=== PATIENT | female | born 1950 | race Caucasian/White ===

== ENCOUNTER 2019-11-01 08:55 | Outpatient (CLI) | payer MEDICARE, OTHER, SELFPAY ==
--- NOTE | 2019-11-01 09:09 | XR_ITS ---
WS: [id number] THORACIC SPINE TECHNIQUE: AP and lateral views are performed. HISTORY: BACK PAIN COMPARISON: 05/08/2010 Moderate increase in thoracic kyphosis. Moderate degenerative disc disease throughout the thoracic sp ine with large osteophytes in the midthoracic vertebral region extending anteriorly. Disc space narro wing and desiccation most significant at T4-T7 and T8-9. No fractures. Marginal osteophytes are great est to the RIGHT. Significant progression of spondylitic changes since 2010. Prior cholecystectomy. Atherosclerosis aorta. XR/XR thoracic spine 3V* [id number] IMPRESSION: 1. Moderate spondylitic changes throughout the thoracic spine with moderate pr ogression since 2010. 2. No fracture.
== END 2019-11-01 08:56 | disposition home or self-care (01) ==
LOC: RADWPI 09:00
PROVIDERS: Family Provider Family Medicine; PCP Family Medicine; Visit Provider Family Medicine
DX: M54.9 Dorsalgia, unspecified (principal)
CPT/HCPCS: 72072

== ENCOUNTER → 2021-09-09 11:15 | Outpatient (BNVA) | payer MEDICARE, OTHER, SELFPAY | PROVIDERS: Family Provider Family Medicine; PCP Family Medicine; Visit Provider Family Medicine | DX: M79.10 Myalgia, unspecified site (principal); M25.50 Pain in unspecified joint | CPT/HCPCS: 80053; 85025; 85651; 86140; 86160; 86162; 86235; 86255; 86376; 86431 ==

== ENCOUNTER → 2021-12-08 09:18 | Outpatient (BNVA) | payer MEDICARE, OTHER, SELFPAY | PROVIDERS: Family Provider Family Medicine; PCP Family Medicine; Referring Provider Family Medicine; Visit Provider Internal Medicine Rheumatology | DX: M05.79 Rheumatoid arthritis with rheumatoid factor of multiple sites without organ or systems involvement (principal); Z79.899 Other long term (current) drug therapy; E06.3 Autoimmune thyroiditis; Z71.85 Encounter for immunization safety counseling; Z11.59 Encounter for screening for other viral diseases; Z11.1 Encounter for screening for respiratory tuberculosis | CPT/HCPCS: 99204 ==

== ENCOUNTER → 2022-01-18 08:21 | Outpatient (BNVA) | payer MEDICARE, OTHER, SELFPAY | PROVIDERS: Family Provider Family Medicine; PCP Family Medicine; Visit Provider Family Medicine | DX: E06.3 Autoimmune thyroiditis (principal); Z11.59 Encounter for screening for other viral diseases; R76.8 Other specified abnormal immunological findings in serum; M06.9 Rheumatoid arthritis, unspecified; Z79.899 Other long term (current) drug therapy | CPT/HCPCS: 80076; 82565; 84439; 84443; 85025; 86140; 86160; 86704; 86803; 87340 ==

== ENCOUNTER → 2022-01-21 08:35 | Outpatient (BNVA) | payer MEDICARE, OTHER, SELFPAY | PROVIDERS: Family Provider Family Medicine; PCP Family Medicine; Visit Provider Family Medicine | DX: Z11.59 Encounter for screening for other viral diseases (principal); M06.9 Rheumatoid arthritis, unspecified; Z79.899 Other long term (current) drug therapy | CPT/HCPCS: 86480 ==

== ENCOUNTER → 2022-02-23 09:21 | Outpatient (BNVA) | payer MEDICARE, OTHER, SELFPAY | PROVIDERS: Family Provider Family Medicine; PCP Family Medicine; Visit Provider Family Medicine | DX: Z79.899 Other long term (current) drug therapy (principal) | CPT/HCPCS: 80076 ==

== ENCOUNTER → 2022-03-09 09:10 | Outpatient (BNVA) | payer MEDICARE, OTHER, SELFPAY | PROVIDERS: Family Provider Family Medicine; PCP Family Medicine; Visit Provider Internal Medicine Rheumatology | DX: M05.79 Rheumatoid arthritis with rheumatoid factor of multiple sites without organ or systems involvement (principal); Z79.899 Other long term (current) drug therapy; Z71.85 Encounter for immunization safety counseling; E06.3 Autoimmune thyroiditis; R76.8 Other specified abnormal immunological findings in serum; K21.9 Gastro-esophageal reflux disease without esophagitis | CPT/HCPCS: 80076; 82565; 85025; 86140; 99214 ==

== ENCOUNTER → 2022-05-26 08:55 | Outpatient (BNVA) | payer MEDICARE, OTHER, SELFPAY | PROVIDERS: Family Provider Family Medicine; PCP Family Medicine; Visit Provider Family Medicine | DX: Z00.00 Encounter for general adult medical examination without abnormal findings (principal); E07.9 Disorder of thyroid, unspecified; I10 Essential (primary) hypertension; J44.9 Chronic obstructive pulmonary disease, unspecified; E06.3 Autoimmune thyroiditis | CPT/HCPCS: 80053; 80061; 84443; 85025 ==

== ENCOUNTER → 2022-05-27 09:46 | Outpatient (BNVA) | payer MEDICARE, OTHER, SELFPAY | PROVIDERS: Family Provider Family Medicine; PCP Family Medicine; Referring Provider Clinical Nurse Specialist Adult Health; Visit Provider Dermatology | DX: L30.8 Other specified dermatitis (principal) | CPT/HCPCS: 88305; 88312 ==

== ENCOUNTER 2022-06-15 08:01 | Outpatient (CLI) | payer MEDICARE, OTHER, SELFPAY ==
--- NOTE | 2022-06-15 08:30 | MM_ITS ---
WS: [id number] BILATERAL SCREENING DIGITAL TOMOSYNTHESIS MAMMOGRAM WITH CAD HISTORY: breast cancer screening COMPARISON: 08/22/2017, 11/03/2006 Bilateral CC and MLO views with tomosynthesis and synthetic mammography submitted. Computer aided det ection analyzed. Breast composition: The breasts are heterogeneously dense, which may obscure small masses. No suspici ous masses, microcalcifications or architectural distortion. Stable cluster of calcifications in the upper outer LEFT breast at a middle depth. There are additional scattered benign calcifications withi n each breast. MM/[place] [id number] IMPRESSION: BI-RADS: 2-Benign FOLLOW UP: 1 Year Follow-up
== END 2022-06-15 08:02 | disposition home or self-care (01) ==
PROVIDERS: PCP Family Medicine; Visit Provider Family Medicine
DX: Z12.31 Encounter for screening mammogram for malignant neoplasm of breast (principal)
CPT/HCPCS: 77063; 77067

== ENCOUNTER → 2022-07-07 13:50 | Outpatient (BNVA) | payer MEDICARE, OTHER, SELFPAY | PROVIDERS: PCP Family Medicine; Visit Provider Internal Medicine Rheumatology | DX: M05.79 Rheumatoid arthritis with rheumatoid factor of multiple sites without organ or systems involvement (principal); Z79.899 Other long term (current) drug therapy; Z71.85 Encounter for immunization safety counseling; E06.3 Autoimmune thyroiditis | CPT/HCPCS: 99214 ==

== ENCOUNTER → 2022-10-28 14:13 | Outpatient (BNVA) | payer MEDICARE, OTHER, SELFPAY | PROVIDERS: PCP Family Medicine; Visit Provider Internal Medicine Rheumatology | DX: Z79.899 Other long term (current) drug therapy (principal); M05.79 Rheumatoid arthritis with rheumatoid factor of multiple sites without organ or systems involvement; Z71.85 Encounter for immunization safety counseling; E06.3 Autoimmune thyroiditis | CPT/HCPCS: 36415; 80076; 82565; 85025; 86140; 99214 ==

== ENCOUNTER → 2022-12-01 10:44 | Outpatient (BNVA) | payer MEDICARE, OTHER, SELFPAY | PROVIDERS: PCP Family Medicine; Visit Provider Clinical Nurse Specialist Adult Health | DX: L98.9 Disorder of the skin and subcutaneous tissue, unspecified (principal) | CPT/HCPCS: 88304 ==

== ENCOUNTER → 2023-01-11 11:14 | Outpatient (BNVA) | payer MEDICARE, OTHER, SELFPAY | PROVIDERS: PCP Family Medicine; Visit Provider Nurse Practitioner Family | DX: L20.89 Other atopic dermatitis (principal); L82.0 Inflamed seborrheic keratosis; L82.1 Other seborrheic keratosis; D22.5 Melanocytic nevi of trunk | CPT/HCPCS: 17110; 99214 ==

== ENCOUNTER → 2023-03-17 11:11 | Outpatient (BNVA) | payer MEDICARE, OTHER, SELFPAY | PROVIDERS: PCP Family Medicine; Visit Provider Family Medicine | DX: Z79.899 Other long term (current) drug therapy (principal); Z00.00 Encounter for general adult medical examination without abnormal findings; M05.79 Rheumatoid arthritis with rheumatoid factor of multiple sites without organ or systems involvement; I10 Essential (primary) hypertension; J44.9 Chronic obstructive pulmonary disease, unspecified; E06.3 Autoimmune thyroiditis | CPT/HCPCS: 80076; 82565; 85025; 86140 ==

== ENCOUNTER 2023-04-11 09:08 | Outpatient (CLI) | payer MEDICARE, OTHER, SELFPAY ==
--- NOTE | 2023-04-11 09:16 | XRR_ITS ---
PROCEDURE INFORMATION: Exam: XR Chest Exam date and time: 04/11/2023 9:21 AM Age: 72 years old Clinical indication: Condition or disease; Lung condition and disease; Copd; Complications not specified; Additional info: J44.9 - chronic obstructive pulmonary disease, unspecified TECHNIQUE: Imaging protocol: Radiologic exam of the chest. Views: 2 views. COMPARISON: CR XR chest 2V* [id number] 12/21/2016 10:27 AM FINDINGS: Lungs: Mild COPD. Lung base atelectasis or scarring again seen. No new consolidation or significant change has occurred from 12/21/2016. Pleural spaces: Unchanged minimal bilateral CP angle blunting by fluid or scarring. No pneumothorax. Heart/Mediastinum: The heart remains quite large. Diffuse vascular calcification Bones/joints: Unremarkable. Organs: Absent gallbladder. XR/XR chest 2V* [id number] IMPRESSION: 1. No acute findings. 2. Chronic findings are similar to 12/21/2016.
== END 2023-04-11 09:09 | disposition home or self-care (01) ==
LOC: RAD 09:09
PROVIDERS: PCP Family Medicine; Visit Provider Family Medicine
DX: J44.9 Chronic obstructive pulmonary disease, unspecified (principal)
CPT/HCPCS: 71046

== ENCOUNTER 2023-05-06 09:50 | Outpatient (CLI) | payer MEDICARE, OTHER, SELFPAY ==
--- NOTE | 2023-05-06 10:15 | USCV_ITS ---
Grace Reyes Age: 72 Gender: F : 1950 Exam Date: 05/06/2023 10:28 Ordering Phys: Brian Yo DO Technologist: ANANT Exam Location: [facility] [place] Indication: COPD, CARDIOMEGALY BP: 126 / 76 HR: 80 Rhythm: Sinus Technical Quality: Adequate MEASUREMENTS (Male / Female) Normal Values 2D ECHO LVOT Diameter 2.0 cm LV Ejection Fraction MOD 2C 56.8 % LV Ejection Fraction 2C AL 59.9 % LA Diameter 4.2 cm LA Width 4.3 cm LA Height 5.8 cm RA Width 3.8 cm RA Height 5.3 cm Aorta at Sinotubular Diameter 2.5 cm IVC Diameter 1.2 cm M-MODE Aortic Annulus Diameter 2.4 cm LA Ao Ratio MM 1.5 MV E Point Septal Separation 0.5 cm DOPPLER AV Peak Velocity 126.0 cm/s LVOT Peak Velocity 98.0 cm/s AV Area Cont Eq vti 2.7 cm squared AV Area Cont Eq pk 2.5 cm squared MV Peak Velocity 87.0 cm/s MV Area PHT 3.0 cm squared Mitral E to A Ratio 1.3 MV E' Velocity 41.0 cm/s Mitral E to MV E' Ratio 11.8 Mitral E to LV E' Lateral Ratio 12.6 Mitral E to LV E' Septal Ratio 11.3 TR Peak Velocity 157.3 cm/s TR Peak Gradient 9.9 mmHg TR Mean Velocity 140.4 cm/s TR Mean Gradient 8.1 mmHg TR Velocity Time Integral 43.3 cm TV Peak E Velocity 34.0 cm/s Right Atrial Pressure 3.0 mmHg Pulmonary Artery Systolic Pressu 12.9 mmHg PV Peak Velocity 95.0 cm/s RV Acceleration Time 0.1 s RV Ejection Time 0.3 s RV AcT/ET 0.2 FINDINGS Left Ventricle Left ventricle is normal in size. LV systolic function is normal with EF of 55 to 60%. No regional wall motion abnormalities are seen. Right Ventricle Normal in size and function Right Atrium Normal in size Left Atrium Dilated. Mitral Valve Structurally normal mitral valve. Mild mitral regurgitation. Aortic Valve Structurally normal aortic valve. No significant stenosis or regurgitation seen. Tricuspid Valve Mild tricuspid regurgitation. Pulmonic Valve Not well-visualized. Pericardium Normal Aorta Normal in size. IVC Appears to be normal. CONCLUSIONS LV systolic function is normal with EF 55 to 60%. Left atrial dilation Mild mitral regurgitation Mild tricuspid regurgitation No comparison studies are available. Brian Hilton MD (Electronically Signed) Final Date: 15 May 2023 20:07 S
== END 2023-05-06 09:51 | disposition home or self-care (01) ==
LOC: RAD 09:50
PROVIDERS: PCP Family Medicine; Visit Provider Family Medicine
DX: I51.7 Cardiomegaly (principal); J41.0 Simple chronic bronchitis
CPT/HCPCS: 93306

== ENCOUNTER → 2023-05-24 11:07 | Outpatient (BNVA) | payer MEDICARE, OTHER, SELFPAY | PROVIDERS: PCP Family Medicine; Visit Provider Internal Medicine Rheumatology | DX: Z79.899 Other long term (current) drug therapy (principal); M05.79 Rheumatoid arthritis with rheumatoid factor of multiple sites without organ or systems involvement; Z71.85 Encounter for immunization safety counseling; E06.3 Autoimmune thyroiditis | CPT/HCPCS: 99214 ==

== ENCOUNTER → 2023-10-18 10:02 | Outpatient (BNVA) | payer MEDICARE, OTHER, SELFPAY | PROVIDERS: PCP Family Medicine; Visit Provider Internal Medicine Rheumatology | DX: M05.79 Rheumatoid arthritis with rheumatoid factor of multiple sites without organ or systems involvement (principal); E06.3 Autoimmune thyroiditis; Z79.899 Other long term (current) drug therapy; Z71.85 Encounter for immunization safety counseling; Z11.1 Encounter for screening for respiratory tuberculosis; Z11.59 Encounter for screening for other viral diseases | CPT/HCPCS: 80053; 80061; 84443; 99214 ==

== ENCOUNTER → 2023-11-01 14:31 | Outpatient (BNVA) | payer MEDICARE, OTHER, SELFPAY | PROVIDERS: PCP Family Medicine; Visit Provider Internal Medicine Rheumatology | DX: M71.9 Bursopathy, unspecified (principal); M05.79 Rheumatoid arthritis with rheumatoid factor of multiple sites without organ or systems involvement; Z71.89 Other specified counseling | CPT/HCPCS: 20610; J1010 ==

== ENCOUNTER 2023-11-02 13:30 | Outpatient (CLI) | payer MEDICARE, OTHER, SELFPAY ==
--- NOTE | 2023-11-02 13:30 | MM_ITS ---
WS: [id number] BILATERAL 3D TOMOSYNTHESIS DIGITAL SCREENING MAMMOGRAPHY WITH CAD CLINICAL INFORMATION: screening HISTORY: Screening mammogram. No current complaints. COMPARISON: 2022 TECHNIQUE: Bilateral CC and MLO views. FINDINGS: The breasts are composed of heterogeneous fibroglandular density tissue, which can limit the detectio n of small underlying mass lesions Bilateral scattered benign incidental punctate calcifications. Vas cular calcification. Stable clustered coarse calcifications LEFT breast. Partially obscured ovoid nodule posterior depth LEFT breast best seen on the lateral view. This local izes to the inner LEFT breast on the tomosynthesis. Recommend LEFT breast diagnostic mammography and ultrasound in further evaluation. RIGHT breast is unremarkable and unchanged. MM/[place] [id number] IMPRESSION: BI-RADS: 0-Incomplete: Need additional imaging evaluation FOLLOW UP: Need Additional Imaging Recommend LEFT breast diagnostic mammography and ultrasound in further evaluati on.
--- NOTE | 2023-11-02 14:00 | XR_ITS ---
WS: [id number] SCREENING DEXA SCAN Smartsheet CLINICAL INFORMATION: screening for osteoporosis COMPARISON: 2017 FINDINGS: The L1-L4 bone mineral density measures 1.055 g/cm2. This corresponds to a T score score of -1.0 and Z score of -0.2. Left femoral neck bone mineral density measures 0.912 g/cm2. This corresponds to a T score of -0.8 an d Z score of 0.2. Right femoral neck bone mineral density measures 0.919 g/cm2. This corresponds to a T score -0.7of an d Z score of 0.2. Mean femoral neck bone mineral density measures 0.915 g/cm2. This corresponds to a T score of -0.7 an d Z score of 0.2. XR/XR DEXA axial skeleton* [id number] IMPRESSION: Osteopenia lumbar spine. Normal bone mineralization femoral necks. Patient's FRAX calculated 10 year probability for major osteoporotic fracture i s 14.2% and osteoporotic hip fracture is 3.0%. Bone mineral density lumbar spine increased 4.1% Bone mineral density femoral necks decreased -4.2%
== END 2023-11-02 13:31 | disposition home or self-care (01) ==
PROVIDERS: PCP Family Medicine; Visit Provider Clinical Nurse Specialist Adult Health
DX: Z12.31 Encounter for screening mammogram for malignant neoplasm of breast (principal); Z13.820 Encounter for screening for osteoporosis; R92.333 Mammographic heterogeneous density, bilateral breasts; R92.1 Mammographic calcification found on diagnostic imaging of breast; N63.20 Unspecified lump in the left breast, unspecified quadrant; M85.88 Other specified disorders of bone density and structure, other site
CPT/HCPCS: 77063; 77067; 77080

== ENCOUNTER → 2023-11-03 11:52 | Outpatient (BNVA) | payer MEDICARE, OTHER, SELFPAY | PROVIDERS: PCP Family Medicine; Visit Provider Family Medicine | DX: R79.89 Other specified abnormal findings of blood chemistry (principal); I10 Essential (primary) hypertension | CPT/HCPCS: 82306 ==

== ENCOUNTER 2024-01-02 11:10 | Outpatient (CLI) | payer MEDICARE, OTHER, SELFPAY ==
--- NOTE | 2024-01-02 11:14 | US_ITS ---
WS: [id number] LEFT 3D TOMOSYNTHESIS DIGITAL MAMMOGRAPHY WITH CAD CLINICAL INFORMATION: abnormal screening mammogram of left breast HISTORY: Additional views COMPARISON: 11/02/2023 TECHNIQUE: 3 views of the left breast were obtained. FINDINGS: The left breast is composed of heterogeneous fibroglandular density tissue, which can limit the detec tion of small underlying mass lesions. Vascular calcifications. Stable cluster of coarse calcificatio ns. Stable partially obscured ovoid nodule posterior depth LEFT breast is persistent. Ultrasound is pendi ng. ULTRASOUND BREAST LEFT TECHNIQUE: Ultrasound left breast focused area of concern. CLINICAL INFORMATION: abnormal screening mammogram of left breast FINDINGS: Ultrasound LEFT breast at the 10 o'clock position 6 cm from the nipple. Incidental simple cyst in thi s location measuring 10 mm. Additional adjacent satellite simple cyst at the 8 o'clock position measu ring 3 mm. Findings are benign. US/US breast LT limited* [id number] IMPRESSION: DENSITY: The breasts are heterogeneously dense, which may obscure small masses. BI-RADS: 2 - Benign FOLLOW UP: 1 Year Follow-up Recommend return to annual screening mammography.
--- NOTE | 2024-01-02 11:30 | MM_ITS ---
WS: [id number] LEFT 3D TOMOSYNTHESIS DIGITAL MAMMOGRAPHY WITH CAD CLINICAL INFORMATION: abnormal screening mammogram of left breast HISTORY: Additional views COMPARISON: 11/02/2023 TECHNIQUE: 3 views of the left breast were obtained. FINDINGS: The left breast is composed of heterogeneous fibroglandular density tissue, which can limit the detec tion of small underlying mass lesions. Vascular calcifications. Stable cluster of coarse calcificatio ns. Stable partially obscured ovoid nodule posterior depth LEFT breast is persistent. Ultrasound is pendi ng. ULTRASOUND BREAST LEFT TECHNIQUE: Ultrasound left breast focused area of concern. CLINICAL INFORMATION: abnormal screening mammogram of left breast FINDINGS: Ultrasound LEFT breast at the 10 o'clock position 6 cm from the nipple. Incidental simple cyst in thi s location measuring 10 mm. Additional adjacent satellite simple cyst at the 8 o'clock position measu ring 3 mm. Findings are benign. MM/MM diag LT tomosynthesis [id number] IMPRESSION: DENSITY: The breasts are heterogeneously dense, which may obscure small masses. BI-RADS: 2 - Benign FOLLOW UP: 1 Year Follow-up Recommend return to annual screening mammography.
== END 2024-01-02 11:11 | disposition home or self-care (01) ==
LOC: RAD 11:11
PROVIDERS: PCP Family Medicine; Visit Provider Clinical Nurse Specialist Adult Health
DX: N60.12 Diffuse cystic mastopathy of left breast (principal); R92.333 Mammographic heterogeneous density, bilateral breasts; R92.1 Mammographic calcification found on diagnostic imaging of breast
CPT/HCPCS: 76642; 77061; G0279

== ENCOUNTER → 2024-02-28 09:31 | Outpatient (BNVA) | payer MEDICARE, OTHER, SELFPAY | PROVIDERS: PCP Family Medicine; Visit Provider Internal Medicine Rheumatology | DX: Z79.899 Other long term (current) drug therapy (principal); M05.79 Rheumatoid arthritis with rheumatoid factor of multiple sites without organ or systems involvement; Z71.85 Encounter for immunization safety counseling; E06.3 Autoimmune thyroiditis | CPT/HCPCS: 36415; 80076; 82565; 85025; 85651; 86140; 99214 ==

== ENCOUNTER → 2024-05-07 15:40 | Outpatient (BNVA) | payer MEDICARE, OTHER, SELFPAY | PROVIDERS: PCP Family Medicine; Visit Provider Family Medicine | DX: R05.9 Cough, unspecified (principal) | CPT/HCPCS: 71046; 87400; 87426 ==

== ENCOUNTER → 2024-06-26 08:56 | Outpatient (BNVA) | payer MEDICARE, OTHER, SELFPAY | PROVIDERS: PCP Family Medicine; Visit Provider Internal Medicine Rheumatology | DX: M05.79 Rheumatoid arthritis with rheumatoid factor of multiple sites without organ or systems involvement (principal); Z79.899 Other long term (current) drug therapy; Z71.85 Encounter for immunization safety counseling; E06.3 Autoimmune thyroiditis | CPT/HCPCS: 36415; 80076; 82565; 85025; 85651; 86140; 99214 ==

== ENCOUNTER → 2024-11-19 14:01 | Outpatient (BNVA) | payer MEDICARE, OTHER, SELFPAY | PROVIDERS: PCP Family Medicine; Visit Provider Internal Medicine Rheumatology | DX: M05.79 Rheumatoid arthritis with rheumatoid factor of multiple sites without organ or systems involvement (principal); Z79.899 Other long term (current) drug therapy; Z71.85 Encounter for immunization safety counseling; E06.3 Autoimmune thyroiditis | CPT/HCPCS: 36415; 80076; 82306; 82565; 85025; 85651; 86140; 86480; 99214 ==

== ENCOUNTER 2025-02-19 10:06 | Outpatient (CLI) | payer MEDICARE, OTHER, SELFPAY ==
--- NOTE | 2025-02-19 10:13 | XRR_ITS ---
PROCEDURE INFORMATION: Exam: XR Right Hip Exam date and time: 02/19/2025 10:19 AM Age: 74 years old Clinical indication: Hip pain; X1 week pain in right hip, stabbing pain; Additional info: M16.10 - unilateral primary osteoarthritis, unspecified hip TECHNIQUE: Imaging protocol: Radiologic exam of the right hip. Views: 1 view hip with pelvis when performed. COMPARISON: No relevant prior studies available. FINDINGS: Bones/joints: Unremarkable. No acute fracture. Soft tissues: Unremarkable. XR/XR hip RT 2-3V wo/w pel* [id number] IMPRESSION: No acute findings.
== END 2025-02-19 10:07 | disposition home or self-care (01) ==
LOC: RAD 10:09
PROVIDERS: PCP Family Medicine; Visit Provider Family Medicine
DX: M16.11 Unilateral primary osteoarthritis, right hip (principal)
CPT/HCPCS: 73502

== ENCOUNTER 2025-02-21 08:50 | Emergency (ER) | payer MEDICARE, OTHER, SELFPAY ==
--- NOTE | 2025-02-21 09:31 | XR_ITS ---
WS: [id number] XR hip RT 2-3V wo/w pel* [id number] REASON FOR EXAM: pain FINDINGS: Suboptimal technique limiting diagnostic quality. The examination is unchanged compared to the study of 2 days ago. Identified. There may be (equivocal) a minimally displaced posterior column fracture involving the posterior inferior acetabulum. A nonenhanced CT scan of the right hip is may be appropriate since the patient has returned in 48 hours with continued left hip pain. XR/XR hip RT 2-3V wo/w pel* [id number] IMPRESSION: Equivocal but potential fracture involving the acetabulum. Recommendation as ab tarike.
[2025-02-21 09:32] VITALS: BP 208/119; PULSE 75; RESP 16; TEMP 36.8; O2SAT 95
[2025-02-21 09:47] VITALS: BP 202/103; PULSE 68; O2SAT 94
--- OUTSIDE RECORDS SUMMARY | 2025-02-21 09:54 | XMS_ITS | Data Portability ---
Author Organization [facility] Katie Aguilar [facility] Address [address] [place] [address] Assessment No assessment recorded. Plan of Treatment Reminders Order Date Submit Date Provider Last Modified By Organization Details Last Modified Time Details Appointments None record ed. Lab None record ed. Referral None record ed. Procedures None record ed. Surgeries None record ed. Imaging None record ed. Medication Orders None record ed. Patient TargetsNo targets recorded. Patient InstructionsNo instructions recorded. Reason for Referral None Reported. Results Created Date Observation Date Name Description Value Unit Range Abnormal Flag Note LastModifiedBy Organization Detail LastModifiedTime 12/08/19 24 11/24/2023 colon oscop y proce dure (PROC ) No observ ation record ed. [email or web address] [facility] [address] , [place], [address], 12/11/2023 13:36:33 Result Notes None recorded. Problems Name Problem SNOMED Code Status Onset Date Resolution Date Notes Provider Name and Address Organization Details Recorded Time Total hysterectomy Active 2011 Hysterec huan, Total; 09/30/19 12 2:17PM by Gladis Obregon LPN, Office Visit; Promoted ; acuity set as *; Not Available [facility] 3 03:10:54 Benign essential hypertension 1384932 Active 2011 Hyperten valerie; 09/30/19 12 2:17PM by Gladis Obregon LPN, Office Visit; Promoted ; acuity set as *; Not Available [facility] 3 03:10:54 Chronic obstructive pulmonary disease 27365112 [facility] 15:57:25 Rheumatoid arthritis 51087116 [facility] 4 15:57:33 Hypothyroidi sm 47161302 [facility] 20[facility] 4 15:57:43 Problem Notes None recorded. Medical Equipment None Reported. Allergies Allergen ID Allergen Name Allergen Category Reaction Reaction Severity Criticality Documentation Date Start Date Code Code System Note Provider Name and Address Organization Details Recorded Time 34978 Demerol medicatio n decreased blood pressure Not available Not available 10/30/2022 74258 1 RxNorm React ion: Hypot ensio n; Comme nt: Recor ded 09/29 2:17P M by Blayne Rodriguez er, SYSTEMS COORDINATOR, Offic e Visit ; Promo lesvia; Signi fican ce: *; ; Not Available [facility] 3 02:27:32 61642 Substance with sulfonami de structure and antibacte rial mechanism of action (substanc e) medicatio n rash Not available Not available 10/30/2022 69732 8003 SNOMED React ion: Rash; Comme nt: Recor ded 09/29 2:17P M by Blayne Rodriguez er, SYSTEMS COORDINATOR, Offic e Visit ; Promo lesvia; Signi fican ce: *; ; Not Available [facility] 3 02:27:32 05427 doxycycli ne hyclate medicatio n nausea Not available Not available 10/30/2022 77812 RxNorm React ion: Nause a, Vomit ing; Comme nt: Recor ded 09/29 2:17P M by Blayne Rodriguez er, SYSTEMS COORDINATOR, Offic e Visit ; Promo lesvia; Signi fican ce: *; ; Not Available [facility] 3 02:27:32 52186 Product containin g penicilli n (product) medicatio n hives Not available Not available 10/30/2022 29711 8001 SNOMED React ion: Hives ; Comme nt: Recor ded 09/29 2:17P M by Blayne ibarra, SYSTEMS COORDINATOR, Offic e Visit ; Kvng lakhani; Dharmesh giles ce: *; ; Not Available [facility] 3 02:27:33 Medications Name Sig Start Date Stop Date Status Note LastModified by Organization Details LastModified Time betametha sone valerate 0.1 % topical ointment APPLY TOPICALL Y TO THE AFFECTED AREA TWICE DAILY FOR SKIN IRRITATI ON ON LEG active Not Available Not Available No t Available azithromy amry jane 250 mg tablet 10/25 completed Not Available Not Available Not Available prednison e 20 mg tablet active Not Available Not Available Not Available clobetaso l 0.05 % topical cream APPLY TOPICALL Y TO BACK OF NECK TWICE DAILY UNTIL CLEARED active Not Available Not Available No t Available leflunomi de 10 mg tablet TAKE 1 TABLET BY MOUTH DAILY active Not Available Not Available No t Available ciproflox acin 500 mg tablet TAKE 1 TABLET BY MOUTH TWICE DAILY FOR 5 DAYS 10/25 completed Not Available Not Available Not Available sulfameth oxazole 800 mg-trimet hoprim 160 mg tablet TAKE 1 TABLET BY MOUTH EVERY 12 HOURS 10/25 completed Not Available Not Available Not Available leflunomi de 20 mg tablet TAKE 1 TABLET BY MOUTH DAILY active Not Available Not Available No t Available alprazola m 0.25 mg tablet TAKE 1 TABLET BY MOUTH TWICE DAILY active Not Available Not Available No t Available benzonata te 100 mg capsule TAKE 1 CAPSULE BY MOUTH THREE TIMES DAILY NEEDED FOR COUGH active Not Available Not Available No t Available pantopraz ole 40 mg tablet,de layed release TAKE 1 TABLET BY MOUTH IN THE MORNING 30 MINUTES BEFORE MEAL active Not Available Not Available No t Available levothyro xine 125 mcg tablet TAKE 1 TABLET BY MOUTH DAILY active Not Available Not Available No t Available tacrolimu s 0.03 % topical ointment APPLY TOPICALL Y TO AFFECTED AREA ON NECK ONCE DAILY active Not Available Not Available No t Available diclofena c sodium 75 mg tablet,de layed release TAKE 1 TABLET BY MOUTH TWICE DAILY NEEDED FOR PAIN active Not Available Not Available No t Available escitalop reji 10 mg tablet TAKE 1 TABLET BY MOUTH DAILY active Not Available Not Available No t Available nitrofura ntoin monohydra te/macroc rystals 100 mg capsule TAKE 1 CAPSULE BY MOUTH EVERY 12 HOURS FOR 5 DAYS 10/25 completed Not Available Not Available Not Available losartan 100 mg-hydroc hlorothia zide 12.5 mg tablet TAKE 1 TABLET BY MOUTH DAILY active Not Available Not Available No t Available loratadin e daily active Recorded 11/30/19 09 2:25PM by Gladis Obregon LPN, Office Visit; Not Available Not Available Not Available Levothroi d daily 2011 active needs TSH at the end of 90 days; 436; Recorded 10/01/19 12 8:41AM by Paris Khan LPN (Authori zed through Ghulam Rubio MD), Annotati on/Adden dum; Refill Quantity : 0; Not Available Not Available Not Available Dayan active 0; Recorded 09/30/19 12 2:17PM by Gladis Obregon LPN, Office Visit; Not Available Not Available Not Available Hyzaar daily 2011 active needs yearly checkup for further refills; 436; Recorded 09/14/19 12 2:51PM by Paris Khan LPN (Authori zed through Ghulam Rubio MD), Refill Request; Refill Quantity : 0; Not Available Not Available Not Available Vitals Date Recorded Body weight Body mass index (BMI) Body height Oxygen saturation Heart rate Respiratory rate Systolic And Diastolic Provider Name and Address Organization Details Last Updated DateTime 4 81279.8 g 35.9 kg/m2 157.48 cm 97 % 85 /min 20 /min 130/90 mm[Hg] Nohemi Rubalcava [facility] 4 15:50:15 Social History None recorded. Functional Status None recorded. Mental Status None recorded. Family History Nothing Reported. Medical History No medical history recorded. Gynecological HistoryNo gynecological history recorded. Obstetrics History GPAL:G 0 P 0 0 0 0 Immunizations Vaccine Type Date Status Note Provider Nam e and Address Organization Details Recorded Time Tdap 7 completed Nohemi white [facility] 10/26/2023 15:44:29 zoster live 5 completed Nohemi white [facility] 10/26/2023 15:44:29 Influenza, split virus, trivalent, preservative 4 completed Nohemi white, [facility] 10/26/2023 15:44:29 Influenza, split virus, trivalent, preservative 3 completed Nohemitimothy white, [facility] 10/26/2023 15:44:29 Influenza, split virus, trivalent, PF 5 completed Nohemitimothy Rubalcava null, [facility] 10/26/2023 15:44:29 Influenza, split virus, trivalent, PF 6 completed Nohemi white, [facility] 10/26/2023 15:44:29 Influenza, split virus, quadrivalent, PF 7 completed Nohemi white, [facility] 10/26/2023 15:44:29 tetanus toxoid, adsorbed 1 completed Not Available [facility] 10/30/2022 02:24:56 Past Encounters Encounter ID Performer Location Encounter Start Date Encounter Closed Date Diagnosis/Indication Diagnosis SNOMED-CT Code Diagnosis ICD10 Code Diagnosis IMO Codes Diagnosis Note [id number] Evelio Curran DO [facility] ([facility]) [address] [place] [address] 10/26/2023 15:39:56 10/26/2023 17:21:19 Screening for malignant neoplasm of colon 754139698 Z12.11 I have reviewed and discussed colon cancer screening options, including colonoscop y. Discussed risks vs benefits including risk of infection and bleeding, perforatio n, possible need for surgery, reaction to medication s, and sever injury or . We discussed pt requiring sedation and possible general anesthesia . Pt agrees to proceed with Colonoscop y at [facility]. Preliminar y procedure date will be .. .......... ...... pt will call back to schedule after she can arrange transporta tion. Health Concerns Section Related Observation LastModified by Organization Detai ls LastModified Time None Recorded Concern Status LastModified by Organization Details LastModified Time None Recorded Advance Directives Directive None Recorded Payers Insurance Date Sequence Insurance Name Policy Number Policy Stone Covered Member ID Stone Member ID Guarantor Name 12/26/2023 2 [employer] (MEDICARE SUPPLEMENT) Grace Reyes [id number] Grace Reyes 12/26/2023 [place] - [place] - [facility] (MEDICARE) Grace Reyes [id number] Grace Reyes 12/26/2023 1 [place] [employer] Grace Reyes [id number] Grace Reyes 10/27/2023 1 *SELF PAY* Br shelly Saman Amy Notes Date Note Type Note Provider Name and Address Organization Details Recorded Time 10/26/2023 text/html Colonoscopy ScreeningReported by PatientColonoscopy ScreeningFor context, patient reportsprior examinationbut reportsno history of ulcerative colitis or crohn's disease. For gi symptoms, patient reportsno abdominal pain,no diarrhea,no constipation,no recent change in bowel movements,no change in the stool,no color change in stool, andno rectal bleeding. For associated symptoms, patient reportsnormal appetite,no fever,no chills,no nausea, andno vomiting. For family history, patient reportsno polypsandno colon cancer.ROS as noted in the HPI The patient presents today at the request of Dr. Yo for evaluation and discussion of colonoscopy for colon cancer screening. The patient denies any recent abdominal pain, persistent diarrhea, persistent constipation, bloody or dark tarry stools, or mucusy stools. Last Colon Cancer screenin with myself, at [facility]. She thinks she had a polyp and was to repeat in 5 years. Problems with anesthesia in the past: NONE Family History of Colon cancers: NONE Blood Thinners: NONE Co-morbidities: HTN, COPD, RA, Hypothyroidism. No recent hospitalization or illness. No recent COPD flares or abx use. Evelio Curran, DO [address] [place], [address], [facility] 10/31/2023 11:28:25 OBGyn Episode No OBEpisode recorded.
--- OUTSIDE RECORDS SUMMARY | 2025-02-21 09:54 | XMS_ITS | Clinical Summary ---
Author Organization [facility] Address [address] [place]n: Epic Prelude ADT KATHLEEN KOLB [address] Care Team Providers Care Medical Staff Director Name Role Phone Unavailable Primary Care Provider Unavailabl e Immunizations Immunization Administration Dates Next Due (PNEUMOVAX 23)(50 YRS UP) PN EUMOCOCCAL POLYSACCHARIDE (PPV23) 0.5 ML, IM 09/28/1999 (TDVAX)(7 YRS UP) TETANUS AN D DIPHTHERIA TOXOIDS, ADSORBED (2 LF OF TETANUS TOXOID AND 2 LF OF DIPHTHERIA TOXOID), 0.5ML (PF), IM 09/28/1999 Social History Tobacco Use Types Packs/Day Years Used Date Smoking Tobacco: Never Assessed Comments Unknown Sex and Gender Information Value Date Recorded Sex Assigned at Not on file Legal Sex Female 5:30 AM [employer]UM[employer] Gender Identity Not on file Sexual Orientation Not on file Plan of Treatment Health Maintenance Due Date Last Done Comments BREAST CANCER SCREENING 1992 COLORECTAL SCREENING 1997 FIT-DNA Q 3 years 1997 Flex Sig/CT Colonography Q 5 years 1997 DTAP/TDAP/TD VACCINES (1 - Tdap) 09/29/1999 09/28/19 00 Colorectal Cancer Screening 10/13/2000 FIT/FOBT Q 1 year 10/13/2000 10/14/1999 PNEUMOCOCCAL VACCINE 50+ YEARS (2 of 2 - PCV) 06/07/19 03 09/28/1999 ZOSTER VACCINE (1 of 2) 2002 OSTEOPOROSIS SCREENING 2017 INFLUENZA VACCINE (#1) 2024 RSV VACCINE (60+ or ) (1 - 1-dose 75+ series) 06/07/2027
--- OUTSIDE RECORDS SUMMARY | 2025-02-21 09:54 | XMS_ITS | Encounter Summary ---
[facility] Organization [facility] Address [address] [place] [address] Care Team Providers Care Produce Shipper Name Role Phone Unavailable Primary Care Provider Unavailabl e Encounter Details Date Type Department Care Team (Latest Contact Info) Description 09/28/1999 Outpatient Historical [facility] Alfonzo Sloan Jr., MD [address] [place] [address] Rheumatoid arthritis(714.0) (CMS/[facility]) (Primary Dx); Need for prophylactic vaccination with tetanus-diphtheria (Td); Need for prophylactic vaccination against Streptococcus pneumoniae (pneumococcus); Encounter for long-term (current) use of other medications Social History Tobacco Use Types Packs/Day Years Used Date Smoking Tobacco: Never Assessed Comments Unknown Sex and Gender Information Value Date Recorded Sex Assigned at Not on file 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 Gender Identity Not on file Sexual Orientation Not on file documented as of this encounter Plan of Treatment Not on file documented as of this encounter Visit Diagnoses Diagnosis Rheumatoid arthritis(714.0) (CMS/[facility])- Primary Rheumatoid arthritis Need for prophylactic vaccination with tetanus-diphtheria (Td) Need for prophylactic vaccination against Streptococcus pneumoniae (pneumococcus) Need for prophylactic vaccination against streptococcus pneumoniae (pneumococcus) Encounter for long-term (current) use of other medications documented in this encounter
--- OUTSIDE RECORDS SUMMARY | 2025-02-21 09:54 | XMS_ITS | Encounter Summary ---
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
--- OUTSIDE RECORDS SUMMARY | 2025-02-21 09:54 | XMS_ITS | Encounter Summary ---
Author Organization [facility] Address [address] [place] [address] Care Team Providers Care Air Reduction Equipment Operator Name Role Phone Unavailable Primary Care Provider Unavailabl e Encounter Details Date Type Department Care Team (Latest Contact Info) Description 10/14/1999 Outpatient Historical [facility] Alfonoz Sloan Jr., MD [address] [place] [phone] Routine medical exam (Primary Dx); Screening for malignant neoplasm of the cervix; Screening for malignant neoplasm of the rectum; Anemia, unspecified; Female stress incontinence; Leiomyoma of uterus, unspecified; Uterine prolapse Social History Tobacco Use Types Packs/Day Years Used Date Smoking Tobacco: Never Assessed Comments Unknown Sex and Gender Information Value Date Recorded Sex Assigned at Not on file 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
--- OUTSIDE RECORDS SUMMARY | 2025-02-21 09:54 | XMS_ITS | Encounter Summary ---
Author Organization [facility] Address [address] [place] [address] Care Team Providers Care Pants Presser Name Role Phone Unavailable Primary Care Provider Unavailabl e Encounter Details Date Type Department Care Team (Latest Contact Info) Description 02/02/2000 Outpatient Historical [facility] Zev Benton MD [address] [place] [id number] Other conjunctivitis (Primary Dx) Social History Tobacco Use Types Packs/Day Years Used Date Smoking Tobacco: Never Assessed Comments Unknown Sex and Gender Information Value Date Recorded Sex Assigned at Not on file 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
--- NOTE | 2025-02-21 10:08 | W.ED.EXTPRO ---
HPI - Extremity Problem General: Chief complaint: Extremity Injury, Lower Stated complaint: Rt hip pain Time Seen by Provider: 02/21/25 09:30 History of Present Illness: 74-year-old female presents emergency room for right hip pain has been progressively worsening over the last week she has still been able to bear weight. No recent falls or trauma she had been to her primary care doctor had an x-ray but states she has not heard the results. Presents to the emergency room with complaints of persistent pain. She has some pain that radiates from the low back through the buttock along the lateral thigh to the level of the knee. She does not have any difficulty with urination no fecal incontinence no saddle paresthesias no weakness in her lower extremities Associated symptoms: Deny chest pain, fever(s) or rash Related Data Previous Rx's ?Medication ?Instructions ?Recorded cholecalciferol (vitamin D3) 125 125 mcg PO DAILY #30 caps 11/03/23 mcg (5,000 unit) capsule alprazolam 0.25 mg tablet 0.25 mg PO BID PRN anxiety and 03/08/24 stress #60 tabs dextromethorphan 5 mg-guaifenesin 20 ml PO Q4H PRN cough #237 mL 05/07/24 50 mg/5 mL oral liquid (Robitussin Cough-Chest Congestion DM) losartan 100 1 tab PO DAILY #90 tabs 06/11/24 mg-hydrochlorothiazide 12.5 mg tablet prednisone 20 mg tablet 20 mg PO DAILY joint pain #30 tabs 06/26/24 fluticasone propionate 50 1 spray intranasal BID sinus 07/17/24 mcg/actuation nasal drainage/cough #16 grams spray,suspension albuterol sulfate 90 mcg/actuation 2 puff inhalation QID PRN 08/02/24 aerosol inhaler (Ventolin HFA) shortness of breath or wheezing #8.5 grams leflunomide 20 mg tablet See Rx Instructions .Route 11/19/24 .COMPLEX #90 tabs prednisone 2.5 mg tablet 2.5 mg PO DAILY #90 tabs 11/19/24 prednisone 20 mg tablet See Rx Instructions PO BID #13 tabs 02/19/25 diclofenac sodium 75 mg 75 mg PO Q12H PRN pain #20 tabs 02/21/25 tablet,delayed release escitalopram oxalate 10 mg tablet 10 mg PO DAILY #90 tabs 02/21/25 levothyroxine 125 mcg tablet See Rx Instructions .Route 02/21/25 .COMPLEX #90 tabs pantoprazole 40 mg tablet,delayed 40 mg PO QDAY stomach/cough #90 02/21/25 release tabs prednisone 20 mg tablet 20 mg PO TID #15 tabs 02/21/25 hydrocodone 5 mg-acetaminophen 325 1 tab PO Q4H PRN hip fx 7 days #42 02/27/25 mg tablet tabs Allergies Allergy/AdvReac Type Severity Reaction Status Date / Time Penicillins Allergy Severe ALGY-Hives Verified 02/19/25 08:24 methotrexate Allergy Unknown Unknown Verified 02/19/25 08:24 sulfamethoxazole (From Allergy Unknown Unknown Verified 02/19/25 08:24 Bactrim) trimethoprim (From Bactrim) Allergy Unknown Unknown Verified 02/19/25 08:24 morphine Allergy Unknown Verified 02/21/25 09:32 sulfur dioxide Allergy hives Verified 02/19/25 08:24 Review of Systems Const: Denies: fever(s) or chills Card: Denies: chest pain Resp: Denies: dyspnea GI: Denies: abdominal pain : Denies: dysuria, urinary frequency or urinary urgency Musc: Reports: joint pain; Denies: neck pain or back pain Skin/Breast: Denies: rash PFSH ED PFSH: Medical History Osteopenia Crow's thyroiditis Immunization counseling High risk medication use Seropositive rheumatoid arthritis of multiple sites COPD (chronic obstructive pulmonary disease) Hypertension Thyroid disease Joint pain Sarcoidosis Surgical History History of hysterectomy with bilateral oophorectomy Family History Other CAD (coronary artery disease) Family history of premature coronary artery disease Hypertension Lung disease Rheumatoid arthritis Denies family history of Diabetes Lupus Chronic kidney disease (CKD) Stroke Social History Smoking and tobacco/nicotine status: never used tobacco/nicotine Physical Exam Const: COMMON NORMALS: no acute distress GENERAL APPEARANCE: cooperative and comfortable ORIENTATION/CONSCIOUSNESS: Yes awake, Yes oriented to person, Yes oriented to place and Yes oriented to time HENMT: COMMON NORMALS: normocephalic, atraumatic and hearing grossly normal bilaterally HEAD & SCALP: normocephalic and atraumatic Resp: COMMON NORMALS: normal respiratory effort, No retractions, No use of accessory muscles and clear to auscultation bilaterally AUSCULTATION: clear to auscultation bilaterally Cardio: COMMON NORMALS: regular rate, regular rhythm and No murmurs present (Cardio) RATE: regular rate RHYTHM: regular rhythm GI: COMMON NORMALS: Soft to palpation and No hepatosplenomegaly present AUSCULTATION: Yes normoactive bowel sounds PALPATION: Yes Soft to palpation, No Tenderness to palpation present (GI), No Guarding due to palpation present (GI) and Yes No hepatosplenomegaly present Extremity: COMMON NORMALS: normal to inspection, capillary refill normal, no clubbing, cyanosis or edema, no calf tenderness and no pedal edema OTHER: Dorsal and plantarflexion strength +2/4 bilaterally sensation lower extremities normal no saddle paresthesias. Neuro: SENSORIUM/ORIENTATION: Yes oriented to person, Yes oriented to place and Yes oriented to time Skin: COMMON NORMALS: no rashes or lesions noted GENERAL SKIN EXAM: no rashes or lesions noted Course Vital Signs: Vital signs: Vital Signs Temperature 98.2 F 02/21/25 09:32 Pulse Rate 77 02/21/25 11:56 Respiratory Rate 16 02/21/25 09:32 Blood Pressure 179/100 02/21/25 11:56 Pulse Oximetry 94 02/21/25 11:56 Oxygen Delivery Me thod Room Air 02/21/25 11:56 MDM - Extremity (Nontraumatic) Medical Decision Making Medical decision making Social determinants: None I reviewed the patient's medical record. I reviewed the patient's current home meds Alternate historians: None Differential diagnosis lumbar radiculopathy versus right hip pain, Plain films showed questionable acetabular fracture CT verified there is no acetabular fracture Lab Review: None Imaging: Severe osteoarthritis right hip Assessment of risk: Level of risk: Low Hospitalization considerations: Considered if fracture present Reexamination: Pain improved but still present Assessment and plan: Patient has no history of trauma plain films was read by radiology as possible acetabular fracture. CT of the hip shows there is no fracture present. Patient has had some improvement with her symptoms. Some of her symptoms are slightly suggestive of possible L4 V nerve root irritation on the right. She has no focal deficits from this however. Will discharge patient home on steroid taper anti-inflammatories and have her follow-up with her primary care doctor if persists may need advanced imaging Lab Data Radiology Impressions Hip/Pelvis X-Ray 02/21/25 09:31 IMPRESSION: Equivocal but potential fracture involving the acetabulum. Recommendation as above. Hip CT 02/21/25 10:34 IMPRESSION: No acute fractures visualized All radiology interpretation(s) finalized by discharge Discharge Plan Discharge Patient Disposition: Home Clinical Impression: Hip pain, right, Lumbar radiculopathy, right Condition: Stable Prescriptions: New prednisone 20 mg tablet 20 mg PO TID Qty: 15 0RF Rx Instructions: 1 p.o. 3 times daily x3 days, 1 p.o. twice daily x2 days, 1 p.o. daily x2 days diclofenac sodium 75 mg tablet,delayed release (DR/EC) 75 mg PO Q12H PRN (Reason: pain) Qty: 20 0RF No Action prednisone 20 mg tablet 20 mg PO DAILY Qty: 30 1RF Rx Instructions: Take 1 tab up to 7 days as needed for flares. alprazolam 0.25 mg tablet 0.25 mg PO BID PRN (Reason: anxiety and stress) Qty: 60 5RF Robitussin Cough-Chest Carlos DM 5-50 mg/5 mL liquid 20 ml PO Q4H PRN (Reason: cough) Qty: 237 0RF leflunomide 20 mg tablet See Rx Instructions .ROUTE .COMPLEX Qty: 90 1RF Dose Instruction: TAKE 1 TABLET BY MOUTH DAILY Rx Instructions: TAKE 1 TABLET BY MOUTH DAILY prednisone 2.5 mg tablet 2.5 mg PO DAILY Qty: 90 1RF fluticasone propionate 50 mcg/actuation spray,suspension 1 spray intranasal BID Qty: 16 3RF Rx Instructions: administer into each nostril prednisone 20 mg tablet See Rx Instructions PO BID Qty: 13 0RF Rx Instructions: 2 po qday x 3 days, then 1 po qday x 7 days cholecalciferol (vitamin D3) 125 mcg (5,000 unit) capsule 125 mcg PO DAILY Qty: 30 6RF losartan-hydrochlorothiazide 100-12.5 mg tablet 1 tab PO DAILY Qty: 90 3RF albuterol sulfate [Ventolin HFA] 90 mcg/actuation HFA aerosol inhaler 2 puff inhalation QID PRN (Reason: shortness of breath or wheezing) Qty: 8.5 12RF escitalopram oxalate 10 mg tablet 10 mg PO DAILY Qty: 90 1RF levothyroxine 125 mcg tablet See Rx Instructions .ROUTE .COMPLEX Qty: 90 1RF Dose Instruction: TAKE 1 TABLET BY MOUTH DAILY Rx Instructions: TAKE 1 TABLET BY MOUTH DAILY pantoprazole 40 mg tablet,delayed release (DR/EC) 40 mg PO QDAY Qty: 90 1RF hydrocodone-acetaminophen 5-325 mg tablet 1 tab PO Q4H PRN (Reason: hip fx) 7 Days Qty: 42 0RF Discharge Orders: Discharge ED (Routine); Ordered 02/21/25 Ordered By: Charles Wagner Referrals: Brian Yo DO [Primary Care Provider, Family Practice] Discharge Diet: Usual diet Discharge Activity: Increase activity as tolerated Patient Instructions: Opioid Safety, Pain Management, Patient Portal & [place] Instructions Activity Restrictions/Additional Instructions: Thank you for choosing [facility] for your healthcare needs today. It is very important that you follow up as instructed or that you return to the Emergency Department should you have concerns or if your condition changes or worsens in any way. Emergency department visits are focused on emergent conditions, in some cases you may require further evaluation on an outpatient basis. You were seen in the emergency room with complaints of right hip pain x-ray there was a question of fracture but CT did not show any fracture. Some of the description of your pain is suggestive of a nerve root impingement in the lower back causing pain radiating to the left hip and leg. Will discharge you home on a higher dose steroid taper diclofenac to use. Follow-up with your primary care doctor (Please note that included in your discharge packet is information concerning opioid safety and pain management. This information is given to all patients were discharged from the ER regardless of their discharge diagnosis or the medicines they usually take or are prescribed.) Print Language: Arabic Coding Level of Care Code ED Distribution Field Technician for Jose De Jesus Salcido
[2025-02-21] MEDS: hyDRALAzine 20 mg/mL INJ 1 mL 10 MG IVP (10:21)
--- NOTE | 2025-02-21 10:34 | CT_ITS ---
WS: [id number] Noncontrast CT RIGHT hip TECHNIQUE: Noncontrast CT RIGHT hip with coronal and sagittal reformatted images. CLINICAL INFORMATION: Possible acetabular fracture, abnormal right hip x-ray DLP: 702.[address] scans at [facility] use at least one of these dose optimization techniques: automated exposure control; mA and/or kV adjustment per patient size (includes targeted exams where dose is matched to clinical indication); or iterative reconstruction. FINDINGS: Moderate arthritis RIGHT hip with joint space narrowing. Mild hypertrophic changes along the acetabulum. No visualized fractures to correspond to the x-ray findings. Normal femoral head and neck. Normal pubic symphysis. Joint arthritis RIGHT SI joint. Vascular calcification. Sigmoid diverticulosis. CT/CT hip RT wo con* [id number] IMPRESSION: No acute fractures visualized
[2025-02-21 10:50] VITALS: BP 183/111; PULSE 80; O2SAT 95
[2025-02-21] MEDS: fentaNYL 50 mcg/mL INJ 2mL 25 MCG IVP (11:53)
[2025-02-21 11:56] VITALS: BP 179/100; PULSE 77; O2SAT 94
== END 2025-02-21 13:00 | disposition home or self-care (01) ==
PROVIDERS: Emergency Provider Family Medicine; PCP Family Medicine
DX: M25.551 Pain in right hip (principal); M54.16 Radiculopathy, lumbar region; J44.9 Chronic obstructive pulmonary disease, unspecified; I10 Essential (primary) hypertension
CPT/HCPCS: 73502; 73700; 96374; 96375; 99285; J0360; J1885; J3010

== ENCOUNTER 2025-03-11 09:01 | Emergency (ER) | payer MEDICARE, OTHER, SELFPAY ==
--- NOTE | 2025-03-11 09:03 | XR_ITS ---
WS: [id number] XR hip RT 2-3V wo/w pel* [id number] REASON FOR EXAM: pain for weeks FINDINGS: No fracture or focal bone lesion. Mild narrowing of the joint space with moderate subchondral sclerosis and osteophytosis of the acetabulum. Mild osteophytosis of the femoral head. XR/XR hip RT 2-3V wo/w pel* [id number] IMPRESSION: Mild to moderate osteoarthritis with no acute abnormality.
[2025-03-11 09:10] VITALS: BP 186/125; PULSE 103; RESP 16; TEMP 36.9; O2SAT 97; BMI 36.6
--- NOTE | 2025-03-11 09:22 | W.ED.EXTPRO ---
HPI - Extremity Problem General: Chief complaint: Extremity Problem,Nontraumatic Stated complaint: R hip pain Time Seen by Provider: 03/11/25 09:05 Source: patient and old records reviewed Mode of arrival: ambulatory Limitations: no limitations History of Present Illness: Patient is a 74-year-old female with history of rheumatoid arthritis of multiple joints who presents to the emergency department for continued right hip pain. She has been dealing with this pain for weeks, initially was seen in the emergency department on 02/21 for the same hip pain had an x-ray showing possible fracture but CT of the hip ruling this out. She was started on pain medications and steroid taper and states pain has persisted since. She tells me she has not attempted an MRI a couple of times but has been unable to sit through it secondary to the pain. She has not followed up with any specialist. There have been no recurrent falls or trauma to the right hip. Has remained ambulatory, notes that the Harrold that she has been taking has been helping her pain. She is hypertensive at this time 186/125 though she is stating she is in severe pain. No fevers, nausea/vomiting, or any other symptoms at this time. MD Complaint: joint pain Onset (ago): week(s) Pain Consistency: constant Location: right and lower extremity (hip) Associated symptoms: Deny chest pain, fever(s) or rash Related Data Previous Rx's ?Medication ?Instructions ?Recorded cholecalciferol (vitamin D3) 125 125 mcg PO DAILY #30 caps 11/03/23 mcg (5,000 unit) capsule alprazolam 0.25 mg tablet 0.25 mg PO BID PRN anxiety and 03/08/24 stress #60 tabs dextromethorphan 5 mg-guaifenesin 20 ml PO Q4H PRN cough #237 mL 05/07/24 50 mg/5 mL oral liquid (Robitussin Cough-Chest Congestion DM) losartan 100 1 tab PO DAILY #90 tabs 06/11/24 mg-hydrochlorothiazide 12.5 mg tablet prednisone 20 mg tablet 20 mg PO DAILY joint pain #30 tabs 06/26/24 fluticasone propionate 50 1 spray intranasal BID sinus 07/17/24 mcg/actuation nasal drainage/cough #16 grams spray,suspension albuterol sulfate 90 mcg/actuation 2 puff inhalation QID PRN 08/02/24 aerosol inhaler (Ventolin HFA) shortness of breath or wheezing #8.5 grams leflunomide 20 mg tablet See Rx Instructions .Route 11/19/24 .COMPLEX #90 tabs prednisone 2.5 mg tablet 2.5 mg PO DAILY #90 tabs 11/19/24 prednisone 20 mg tablet See Rx Instructions PO BID #13 tabs 02/19/25 diclofenac sodium 75 mg 75 mg PO Q12H PRN pain #20 tabs 02/21/25 tablet,delayed release escitalopram oxalate 10 mg tablet 10 mg PO DAILY #90 tabs 02/21/25 levothyroxine 125 mcg tablet See Rx Instructions .Route 02/21/25 .COMPLEX #90 tabs pantoprazole 40 mg tablet,delayed 40 mg PO QDAY stomach/cough #90 02/21/25 release tabs prednisone 20 mg tablet 20 mg PO TID #15 tabs 02/21/25 hydrocodone 10 mg-acetaminophen 1 tab PO Q8H PRN pain #10 tabs 03/11/25 325 mg tablet prednisone 10 mg tablets in a dose 10 mg PO DIRECTED #21 ea 03/11/25 pack Allergies Allergy/AdvReac Type Severity Reaction Status Date / Time Penicillins Allergy Severe ALGY-Hives Verified 02/19/25 08:24 methotrexate Allergy Unknown Unknown Verified 02/19/25 08:24 sulfamethoxazole (From Allergy Unknown Unknown Verified 02/19/25 08:24 Bactrim) trimethoprim (From Bactrim) Allergy Unknown Unknown Verified 02/19/25 08:24 morphine Allergy Unknown Verified 02/21/25 09:32 sulfur dioxide Allergy hives Verified 02/19/25 08:24 Review of Systems General: Reports: 10 or more systems reviewed and unremarkable except in HPI and below Const: Denies: fever(s) or chills Card: Denies: chest pain Resp: Denies: dyspnea or productive cough GI: Denies: abdominal pain, nausea, vomiting or diarrhea : Denies: flank pain Musc: Reports: joint pain (rt hip); Denies: neck pain, back pain, extremity pain, extremity swelling, joint swelling, joint redness, joint warmth, limited range of motion or muscle weakness Skin/Breast: Denies: rash Neuro: Denies: headache(s), numbness in extremities or weakness in extremities PFSH ED PFSH: Medical History Osteopenia Crow's thyroiditis Immunization counseling High risk medication use Seropositive rheumatoid arthritis of multiple sites COPD (chronic obstructive pulmonary disease) Hypertension Thyroid disease Joint pain Sarcoidosis Surgical History History of hysterectomy with bilateral oophorectomy Family History Other CAD (coronary artery disease) Family history of premature coronary artery disease Hypertension Lung disease Rheumatoid arthritis Denies family history of Diabetes Lupus Chronic kidney disease (CKD) Stroke Social History Smoking and tobacco/nicotine status: never used tobacco/nicotine Physical Exam Const: COMMON NORMALS: no acute distress, patient oriented x3, no limitations, healthy appearing, alert and well nourished HENMT: COMMON NORMALS: normocephalic and atraumatic HEAD & SCALP: normocephalic and atraumatic Neck/C-Spine: COMMON NORMALS: full ROM, supple and no meningeal signs Resp: COMMON NORMALS: normal respiratory effort, No use of accessory muscles and clear to auscultation bilaterally AUSCULTATION: clear to auscultation bilaterally Cardio: COMMON NORMALS: regular rate and regular rhythm RATE: regular rate RHYTHM: regular rhythm Extremity: COMMON NORMALS: full ROM, capillary refill normal, no joint enlargement and no clubbing, cyanosis or edema NARRATIVE EXTREMITY EXAM: Tender to palpation lateral right hip with no deformity. No redness or swelling. Full range of motion at the hip. No shortening or internal/external rotation of the right lower extremity. Neuro: COMMON NORMALS: patient oriented x3, moves all extremities, no focal motor deficits and no sensory deficits noted SENSORIUM/ORIENTATION: Yes alert MENINGEAL SIGNS: Yes no meningeal signs Skin: COMMON NORMALS: no rashes or lesions noted GENERAL SKIN EXAM: no rashes or lesions noted Course Vital Signs: Vital signs: Vital Signs Temperature 98.4 F 03/11/25 09:10 Pulse Rate 103 H 03/11/25 09:10 Respiratory Rate 16 03/11/25 09:10 Blood Pressure 186/125 03/11/25 09:10 Pulse Oximetry 97 03/11/25 09:10 Oxygen Delivery Me thod Room Air 03/11/25 09:10 MDM - Extremity (Nontraumatic) Medical Decision Making Patient present with continued right hip pain this has been on her for the past [address] with her last ER visit a couple weeks ago rule out a fracture, she states that she tried to sit there and MRI but was unable to do so has not received any advanced imaging. Has not followed up with any specialist. Has been taking Harrold and steroids for pain. There is no new trauma to report, she has range of motion of the hips and neurovascular status is intact. Tender to palpation lateral hip, has been ambulatory but more sedentary secondary to pain. X-ray ordered today showing osteoarthritis but no acute abnormality. She will be referred to orthopedics, she requested to go to [facility] so referral is placed. Relief from medications here in the emergency department. Lab Data Radiology Impressions Hip/Pelvis X-Ray 03/11/25 09:03 IMPRESSION: Mild to moderate osteoarthritis with no acute abnormality. All radiology interpretation(s) finalized by discharge Discharge Plan Discharge Patient Disposition: Home Clinical Impression: Hip arthritis Qualifiers: Laterality: right Qualified Code(s): M16.11 - Unilateral primary osteoarthritis, right hip Condition: Stable Prescriptions: New hydrocodone-acetaminophen 10-325 mg tablet 1 tab PO Q8H PRN (Reason: pain) Qty: 10 0RF prednisone 10 mg tablets,dose pack 10 mg PO DIRECTED Qty: 21 0RF Rx Instructions: see taper instructions 6 tablets on day 1, 5 tablets on day 2, 4 tablets on day 3, 3 tablets on day 4, 2 tablets on day 5, and 1 tablet a day 6. P.o. Discontinued hydrocodone-acetaminophen 10-325 mg tablet 1 tab PO Q6H PRN (Reason: severe hip pain) 7 Days Qty: 28 0RF No Action prednisone 20 mg tablet 20 mg PO DAILY Qty: 30 1RF Rx Instructions: Take 1 tab up to 7 days as needed for flares. alprazolam 0.25 mg tablet 0.25 mg PO BID PRN (Reason: anxiety and stress) Qty: 60 5RF Robitussin Cough-Chest Carlos DM 5-50 mg/5 mL liquid 20 ml PO Q4H PRN (Reason: cough) Qty: 237 0RF leflunomide 20 mg tablet See Rx Instructions .ROUTE .COMPLEX Qty: 90 1RF Dose Instruction: TAKE 1 TABLET BY MOUTH DAILY Rx Instructions: TAKE 1 TABLET BY MOUTH DAILY prednisone 2.5 mg tablet 2.5 mg PO DAILY Qty: 90 1RF fluticasone propionate 50 mcg/actuation spray,suspension 1 spray intranasal BID Qty: 16 3RF Rx Instructions: administer into each nostril prednisone 20 mg tablet See Rx Instructions PO BID Qty: 13 0RF Rx Instructions: 2 po qday x 3 days, then 1 po qday x 7 days cholecalciferol (vitamin D3) 125 mcg (5,000 unit) capsule 125 mcg PO DAILY Qty: 30 6RF losartan-hydrochlorothiazide 100-12.5 mg tablet 1 tab PO DAILY Qty: 90 3RF albuterol sulfate [Ventolin HFA] 90 mcg/actuation HFA aerosol inhaler 2 puff inhalation QID PRN (Reason: shortness of breath or wheezing) Qty: 8.5 12RF escitalopram oxalate 10 mg tablet 10 mg PO DAILY Qty: 90 1RF levothyroxine 125 mcg tablet See Rx Instructions .ROUTE .COMPLEX Qty: 90 1RF Dose Instruction: TAKE 1 TABLET BY MOUTH DAILY Rx Instructions: TAKE 1 TABLET BY MOUTH DAILY pantoprazole 40 mg tablet,delayed release (DR/EC) 40 mg PO QDAY Qty: 90 1RF prednisone 20 mg tablet 20 mg PO TID Qty: 15 0RF Rx Instructions: 1 p.o. 3 times daily x3 days, 1 p.o. twice daily x2 days, 1 p.o. daily x2 days diclofenac sodium 75 mg tablet,delayed release (DR/EC) 75 mg PO Q12H PRN (Reason: pain) Qty: 20 0RF Discharge Orders: Discharge ED (Routine); Ordered 03/11/25 Ordered By: Cosme Estes Referrals: Brian Yo DO [Primary Care Provider, Family Practice] Patient Instructions: Patient Portal & [place] Instructions Activity Restrictions/Additional Instructions: Take steroid taper as prescribed. Please follow-up with orthopedics as has been arranged, you have been referred to [facility] . 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
[2025-03-11] MEDS: orphenadrine 30 mg/mL Inj 2 mL 60 MG IM (09:45)
[2025-03-11] MEDS: HYDROcodone-acetaminophen 7.5-325 mg Tablet 1 TAB PO (09:46)
[2025-03-11 10:31] VITALS: BP 165/107; PULSE 101; O2SAT 97
--- NOTE | 2025-03-14 09:15 | DCPLANNER ---
faxed referral to [facility] - images pushed
== END 2025-03-11 10:35 | disposition home or self-care (01) ==
PROVIDERS: Emergency Provider Physician Assistant; PCP Family Medicine
DX: M16.11 Unilateral primary osteoarthritis, right hip (principal); J44.9 Chronic obstructive pulmonary disease, unspecified; I10 Essential (primary) hypertension
CPT/HCPCS: 73502; 96372; 99284; J1100; J1885; J2360; J9999

== ENCOUNTER → 2025-03-26 10:35 | Outpatient (BNVA) | payer MEDICARE, OTHER, SELFPAY | PROVIDERS: PCP Family Medicine; Visit Provider Family Medicine | DX: Z79.899 Other long term (current) drug therapy (principal); M16.11 Unilateral primary osteoarthritis, right hip; M54.16 Radiculopathy, lumbar region; E03.9 Hypothyroidism, unspecified; N39.0 Urinary tract infection, site not specified | CPT/HCPCS: 80053; 81000; 84443; 85025 ==

== ENCOUNTER 2025-04-02 08:08 | Outpatient (CLI) | payer MEDICARE, OTHER, SELFPAY ==
--- NOTE | 2025-04-02 08:00 | CT_ITS ---
WS: [id number] CT LUMBAR SPINE, noncontrast. HISTORY: M16.11 - Unilateral primary osteoarthritis, right hip, RIGHT radiculopathy. TECHNIQUE: Contiguous 2.0 mm axial imaging are performed. Sagittal and coronal reformats are submitted and reviewed. All CT scans at [facility] use at least one of these dose optimization techniques: automated exposure control; mA and/or kV adjustment per patient size (includes targeted exams where dose is matched to clinical indication); or iterative reconstruction. IV contrast: None DLP: 1036.49 mGy.cm COMPARISON: None available. Mild increase in the lumbar lordosis. Bones are diffusely osteopenic. Age- indeterminate fracture involving the superior endplate of L3. Concave deformity of the superior endplate of L3 without retropulsion. Fracture estimated at approximately 10 to 15%. Vacuum disc phenomenon at L2-3 and L4-5. L1-2: Mild osteophytic ridging. No stenosis. L2-3: Mild osteophytic ridging and disc bulging. No high-grade stenosis. L3-4: Mild osteophytic ridging and disc bulging. Shallow LEFT foraminal disc protrusion. No high-grade stenosis. Mild LEFT foraminal stenosis. L4-5: Mild annular disc bulging encroaching upon the ventral thecal sac, subarticular recesses and foramen. Mild bilateral foraminal stenosis, LEFT greater than RIGHT. Small bilateral disc osteophyte protrusions. L5-S1: Mild annular disc bulging with osteophytic ridging. Small bilateral foraminal disc osteophytes. Mild to moderate RIGHT and mild LEFT foraminal stenosis. There is slight disc and osteophyte contact on the exiting RIGHT L5 nerve root. Facet joint arthritis is moderate to severe. Lung bases are clear. Scattered atherosclerotic plaque in the aorta. Sigmoid diverticulosis. No evidence for acute diverticulitis. Degenerative air in the SI joints. CT/CT lumbar spine wo con* [id number] IMPRESSION: 1. Age-indeterminate fracture but acute to subacute age suspected at L3. No re tropulsion. No cord compression. Fracture estimated at 10 to 15% along the supe rior endplate. 2. Degenerative disc disease and osteophytosis throughout the lumbar spine. 3. Small bilateral foraminal disc osteophytes at L5-S1. Mild to moderate steno sis on the RIGHT and mild on the LEFT. Slight disc osteophyte contact on the ex iting RIGHT L5 nerve root. 4. Moderate to severe facet joint arthropathy at L5-S1. 5. Mild bilateral foraminal stenosis at L4-5. Small bilateral foraminal disc o steophyte protrusions. 6. Mild LEFT foraminal stenosis at L3-4.
== END 2025-04-02 08:09 | disposition home or self-care (01) ==
PROVIDERS: PCP Family Medicine; Visit Provider Family Medicine
DX: M16.11 Unilateral primary osteoarthritis, right hip (principal); M51.369 Other intervertebral disc degeneration, lumbar region without mention of lumbar back pain or lower extremity pain; M48.061 Spinal stenosis, lumbar region without neurogenic claudication; M51.379 Other intervertebral disc degeneration, lumbosacral region without mention of lumbar back pain or lower extremity pain; M48.07 Spinal stenosis, lumbosacral region; M47.27 Other spondylosis with radiculopathy, lumbosacral region
CPT/HCPCS: 72131